=== PATIENT | male | born 1990 | race Caucasian/White ===

== ENCOUNTER 2019-04-02 12:01 | Emergency (ER) | payer OTHER, SELFPAY ==
--- NOTE | 2019-04-02 12:13 | ED.GENADULT ---
HPI - General Adult General Chief complaint: Wound/Laceration Stated complaint: Poss Spider bite Time Seen by Provider: 04/02/19 12:32 Source: patient Mode of arrival: ambulatory Limitations: no limitations History of Present Illness HPI narrative: 29-year-old male patient presents to the [facility] with complaints of a wound to the upper groin/lower abdomen area. Patient states the wound has been there for approximately 1 week now. Patient states he thinks he might of been bitten by something. Denies any specific injury to the area. Patient states that within the last couple of days is gotten a little bit more red. Patient states he has been cleaning with soap and water and alcohol wipes. Patient states he has been putting a thin layer of antibiotic ointment on it. Patient states that his pants have been rubbing up against it. Denies seeing any increased swelling or discharge coming from the area. Denies any fevers or sweats. Related Data Allergies Allergy/AdvReac Type Severity Reaction Status Date / Time No Known Allergies Allergy Verified 04/02/19 12:33 Review of Systems Review of Systems: Narrative: CONSTITUTIONAL: Denies fever, chills, or sweats. EYES: Denies visual changes, redness, or discharge. ENT: Denies rhinorrhea, congestion, sore throat, or otalgia. CARDIOVASCULAR: Denies chest pain, palpitations, or edema. RESPIRATORY: Denies cough or dyspnea. GASTROINTESTINAL: Denies abdominal pain, nausea, vomiting, or diarrhea. GENITOURINARY: Denies dysuria or hematuria. SKIN: Denies rash or itching. Positive wound to upper groin/lower abdomen x1 week. MUSCULOSKELETAL: Denies back pain, joint pain, or myalgia. NEUROLOGIC: Denies headache, numbness, or weakness. PSYCHIATRIC: Denies anxiety or depression. PMFSH Comments At the time of my signature I agree with nursing past medical history, surgical, social, and family history. There is no relevant family history pertinent to the presenting complaint. Exam Narrative: Exam Narrative: GENERAL: Well-appearing, well-nourished, and in no acute distress. HEAD: Normocephalic, atraumatic. EYES: PERRLA and EOMI. ENT: Nares clear, no rhinorrhea or epistaxis. Mucous membranes moist. NECK: Supple. No lymphadenopathy CHEST: Clear to auscultation. No respiratory distress. HEART: Regular rate and rhythm. No murmur heard. Normal peripheral pulses. ABDOMEN: Soft, nontender, nondistended, normal active bowel sounds. EXTREMITIES: Normal range of motion. No edema. SKIN: Warm, dry, no rash. Patient has 2 small scabbed over areas to the upper groin/lower abdomen area that are measuring approximately 0.5 cm. The area does have some erythema where his waistband has been rubbing up against the wound. But there is no warmth to the area. There is no swelling no discharge noted. NEURO: No focal deficits. Alert and oriented x3. Course Vital Signs Vital signs: Vital Signs Temperature 37.3 C 04/02/19 12:19 Pulse Rate 80 04/02/19 12:19 Respiratory Rate 16 04/02/19 12:19 Blood Pressure 115/78 04/02/19 12:19 Pulse Oximetry 99 04/02/19 12:19 Temperature 37.3 C 04/02/19 12:19 Pulse Rate 80 04/02/19 12:19 Respiratory Rate 16 04/02/19 12:19 Blood Pressure 115/78 04/02/19 12:19 Pulse Oximetry 99 04/02/19 12:19 Vital signs reviewed. Medical Decision Making Differential Diagnosis Differential Diagnosis: Differential diagnosis: Abscess, cellulitis, hidradenitis, laceration, puncture wound. Discussed with patient that the fact that he is not running any fevers he is got a high heart rate and that the wound is scabbed over is reassuring. Discussed with patient that most likely it is not healing as fast as he wanted to because the waistband of his pants continue to rub up against it. Discussed with patient continue to clean the area with regular soap and water but no alcohol. Discussed with patient I am did not prescribe him an antibiotic ointment to put on there and h
[2019-04-02 12:19] VITALS: BP 115/78; PULSE 80; RESP 16; TEMP 37.3; O2SAT 99
== END 2019-04-02 12:40 | disposition home or self-care (01) ==
PROVIDERS: Emergency Provider Nurse Practitioner Family
DX: L98.9 Disorder of the skin and subcutaneous tissue, unspecified (principal)
CPT/HCPCS: 99203; G0463